=== PATIENT | female | born 1950 | race Caucasian/White ===

== ENCOUNTER 2018-02-09 04:20 | Emergency (ER) | payer MEDICARE, MEDICAID ==
[~2018-02-09] VITALS: Ht 160 cm; Wt 65.0 kg
[~2018-02-09 04:20] MED LIST: BACI500T TOP; DOCU1CAP39 PO; HYDRO25 PO; LORA0.5T PO; NORC10TA2 PO; PARO20 PO; QUET100 PO; QUET25 PO; RIVA10 PO; THIA100T PO; Z.0.WALKERFRONT; Z.0.WHEELELR
[2018-02-09 04:27] VITALS: BP 138/89; PULSE 94; RESP 18; TEMP 97.4; O2SAT 94
--- NOTE | 2018-02-09 04:39 | PD ---
HPI Chief Complaint: Syncope/Near-Syncope Time Seen by Provider: 04:39 Travel History International Travel<30 days: No Contact w/Intl Traveler<30days: No Traveled to known affect area: No History of Present Illness HPI 68-year-old female came to the emergency room with history of syncopal episode witnessed by her partner. Patient has been complaining of nausea all day as per her partner. At night before going to bed she gave her a dose of trazodone so that she will be able to sleep. However at around 4 AM she woke up and said she had to go to the bathroom. Her partner helped her to the toilet. She was still standing there when she noticed that the patient flopped her head back and her eyes rolled back and she started foaming at the mouth. She called 911 and try to lay her on the floor. Patient remained unresponsive until EMS arrived at which point she slowly started to wake up. Patient does not recall any of this. Currently she still continues to complain of nausea. She is an alcoholic and drinks about 8-10 beers a day. She drinks last night as well. Currently she is awake and answering questions appropriately. Vital signs are relatively stable. Patient has never had syncopal episode like this in the past. [facility] Past Medical History Narrative Medical List of her past medical, surgical, social and family history is reviewed from the nursing note Arthritis: No Bipolar Disorder: Yes Anxiety: Yes Depression: Yes Heart Rhythm Problems: No Cancer: Yes Cardiovascular Problems: Yes High Cholesterol: No Chemotherapy: No Chest Pain: No Congestive Heart Failure: No COPD: No Diabetes: No Diminished Hearing: Yes (BILAT) Endocrine: No Gastrointestinal Disorders: No GERD: No Genitourinary: No Headaches: No Hiatal Hernia: No Heparin Induced Thrombocytopen: No Hypertension: Yes Immune Disorder: No Implanted Vascular Access Dvce: No Musculoskeletal: No Neurologic: No Psychiatric: Yes Reproductive: No Respiratory: No Immunizations Current: Yes Migraines: No Radiation Therapy: No Schizophrenia: Yes Seizures: No Sickle Cell Disease: No Sleep Apnea: No Thyroid Disease: No Ulcer: No Menopausal: Yes : 2 Para: 0 : 2 Past Surgical History Abdominal Surgery: No AICD: No Arteriovenous Shunt: No Cardiac Surgery: No Ear Surgery: No Endocrine Surgery: No Eye Surgery: No Genitourinary Surgery: No Gynecologic Surgery: No Insulin Pump: No Joint Replacement: No Neurologic Surgery: No Oral Surgery: No Pacemaker: No Thoracic Surgery: No Other Surgery: No Social History Alcohol Use: Yes (SOC) Tobacco Use: Yes (1/2 PPD) Substance Use: Yes Allergies-Medications (Allergen,Severity, Reaction): Coded Allergies: No Known Allergies (Unverified Adverse Reaction, Unknown, 02/09/18) Comments No known drug allergies per Reported Meds & Prescriptions Reported Meds & Active Scripts Active Active Prescriptions or Reported Medications Unobtainable Narrative Medication List of her home medications reviewed from the nursing note. Review of Systems Except as stated in HPI: all other systems reviewed are Neg Gastrointestinal: Positive: Nausea Neurologic: Positive: Syncope Physical Exam Narrative GENERAL: Awake, alert, moderate distress, looks older than her age SKIN: Focused skin assessment warm/dry. HEAD: Atraumatic. Normocephalic. EYES: Pupils equal and round. No scleral icterus. No injection or drainage. ENT: No nasal bleeding or discharge. Mucous membranes pink and moist. NECK: Trachea midline. No JVD. CARDIOVASCULAR: Regular rate and rhythm. No murmur appreciated. RESPIRATORY: No accessory muscle use. Clear to auscultation. Breath sounds equal bilaterally. GASTROINTESTINAL: Abdomen soft, non-tender, nondistended. Hepatic and splenic margins not palpable. MUSCULOSKELETAL: No obvious deformities. No clubbing. No cyanosis. No edema. NEUROLOGICAL: Awake and alert. No obvious cranial nerve deficits. Motor grossly within normal limits. Normal speech. PSYCHIATRIC: Appropriate mood and affect; insight and judgment normal. Data Data Last Documented VS Vital Signs Date Time Temp Pulse Resp B/P (MAP) Pulse Ox O2 Delivery O2 Flow Rate FiO2 02/09/18 11:49 02/09/18 11:18 75 18 96 Room Air Orders Orders Electrocardiogram (02/09/18 05:00) Prothrombin Time / Inr (Pt) (02/09/18 05:00) Complete Blood Count With Diff (02/09/18 05:00) Comprehensive Metabolic Panel (02/09/18 05:00) Troponin I (02/09/18 05:00) Urinalysis - C+S If Indicated (02/09/18 05:00) Ct Brain W/O Iv Contrast(Rout) (02/09/18 05:00) Ecg Monitoring (02/09/18 05:00) Iv Access Insert/Monitor (02/09/18 05:00) Oximetry (02/09/18 05:00) Ondansetron Inj (Zofran Inj) (02/09/18 05:00) Sodium Chloride 0.9% Flush (Ns Flush) (02/09/18 05:00) Alcohol (Ethanol) (02/09/18 05:00) Sodium Chlorid 0.9% 500 Ml Inj (Ns 500 M (02/09/18 05:00) Mri Brain W&W/O Contrast (02/09/18 ) Gadodiamide Pf Inj (Omniscan Pf Inj) (02/09/18 08:15) Potassium Bicarb Eff (Effer-K Eff) (02/09/18 09:45) Ed Discharge Order (02/09/18 11:33) Labs Laboratory Tests Test 02/09/18 05:08 02/09/18 05:38 White Blood Count 8.7 TH/MM3 Red Blood Count 4.38 MIL/MM3 Hemoglobin 14.4 GM/DL Hematocrit 41.9 % Mean Corpuscular Volume 95.8 FL Mean Corpuscular Hemoglobin 32.9 PG Mean Corpuscular Hemoglobin Concent 34.3 % Red Cell Distribution Width 13.2 % Platelet Count 217 TH/MM3 Mean Platelet Volume 8.9 FL Neutrophils (%) (Auto) 45.4 % Lymphocytes (%) (Auto) 43.4 % Monocytes (%) (Auto) 7.7 % Eosinophils (%) (Auto) 2.8 % Basophils (%) (Auto) 0.7 % Neutrophils # (Auto) 4.0 TH/MM3 Lymphocytes # (Auto) 3.8 TH/MM3 Monocytes # (Auto) 0.7 TH/MM3 Eosinophils # (Auto) 0.2 TH/MM3 Basophils # (Auto) 0.1 TH/MM3 CBC Comment DIFF FINAL Differential Comment Prothrombin Time 10.5 SEC Prothromb Time International Ratio 1.0 RATIO Blood Urea Nitrogen 4 MG/DL Creatinine 0.61 MG/DL Random Glucose 82 MG/DL Total Protein 7.0 GM/DL Albumin 3.5 GM/DL Calcium Level 8.0 MG/DL Alkaline Phosphatase 131 U/L Aspartate Amino Transf (AST/SGOT) 123 U/L Alanine Aminotransferase (ALT/SGPT) 23 U/L Total Bilirubin 0.5 MG/DL Sodium Level 132 MEQ/L Potassium Level 3.1 MEQ/L Chloride Level 96 MEQ/L Carbon Dioxide Level 17.8 MEQ/L Anion Gap 18 MEQ/L Estimat Glomerular Filtration Rate 97 ML/MIN Troponin I LESS THAN 0.02 NG/ML Ethyl Alcohol Level 45 MG/DL Urine Color COLORLESS Urine Turbidity CLEAR Urine pH 5.5 Urine Specific [place] 1.003 Urine Protein NEG mg/dL Urine Glucose (UA) NEG mg/dL Urine Ketones NEG mg/dL Urine Occult Blood NEG Urine Nitrite NEG Urine Bilirubin NEG Urine Urobilinogen LESS THAN 2.0 MG/DL Urine Leukocyte Esterase TRACE Urine RBC LESS THAN 1 /hpf Urine WBC 1 /hpf Microscopic Urinalysis Comment CATH-CULT NOT IND MDM Medical Decision Making Medical Screen Exam Complete: Yes Emergency Medical Condition: Yes Medical Record Reviewed: Yes Interpretation(s) Twelve-lead EKG was reviewed by me. Normal sinus rhythm, normal axis, nonspecific ST-T wave changes. Heart rate of 90 bpm. Differential Diagnosis Cardiac arrhythmia, electrolyte abnormality, intracranial bleed, Narrative Course 6:04 AM blood test results are pending. CBC is back which is within normal limits. Chemistries pending. CT scan was done and has been reported by the radiologist as a hypodense lesion noticed recommending MRI. I have ordered an MRI. Waiting for this test to be done and resulted. Case most probably will be signed out to the oncoming ER physician. Procedures EKG Prior to Arrival: No Scripts Unable to Obtain Active Prescriptions or Reported Meds Kiana Lane MD Feb 09, 2018 04:39
[2018-02-09] MEDS ORDERED: ONDANSETRON HCL 4 MG/2 ML VIAL IVP ONE (05:00)
[2018-02-09] MEDS ORDERED: SODIUM CHLORID 0.9% 500 ML INJ 500 ML IV ONE (05:00)
[2018-02-09] MEDS ORDERED: SODIUM CHLORIDE 0.9% FLUSH 10 ML FLUSH IVF PRN (05:00)
[2018-02-09 05:14] VITALS: BP 114/89; PULSE 86; RESP 16; O2SAT 95
--- NOTE | 2018-02-09 05:48 | RADRPT ---
EXAM DATE/TIME: 02/09/2018 05:19 [facility] COMPARISON: No previous studies available for comparison. INDICATIONS : Nausea and headache. RADIATION DOSE: 56.35 CTDIvol (mGy) MEDICAL HISTORY : Cardiovascular disease. Hypertension. SURGICAL HISTORY : None. ENCOUNTER: Initial ACUITY: 1 day PAIN SCALE: 7/10 LOCATION: cranial TECHNIQUE: Multiple contiguous axial images were obtained of the head. Using automated exposure control and adj ustment of the mA and/or kV according to patient size, radiation dose was kept as low as reasonably a chievable to obtain optimal diagnostic quality images. DICOM format image data is available electro nically for review and comparison. FINDINGS: CEREBRUM: The ventricles are normal for age. There is a focal asymmetric area of hypo-density in the left demetra na radiata with ill-defined margins measuring 1.6 cm. There is good soto-white matter differentiatio n and remainder of the supratentorial brain. No evidence of acute blood products. No extra-axial fl uid or blood is POSTERIOR FOSSA: The cerebellum and brainstem are intact. The 4th ventricle is midline. The cerebellopontine angle i s unremarkable. EXTRACRANIAL: The visualized portion of the orbits is intact. SKULL: The calvaria is intact. No evidence of skull fracture. CONCLUSION: 1. Focal hypodensity in the left parietal white matter. Recommend MRI examination with contrast for further characterization. Martin Ferguson MD on February 09, 2018 at 5:43 Board Certified Radiologist. This report was verified electronically.
[2018-02-09 05:49] LABS: BASOPHIL # 0.1 TH/MM3 (0-0.2); BASOPHIL % 0.7 % (0.0-2.0); EOSINOPHIL # 0.2 TH/MM3 (0-0.4); EOSINOPHIL % 2.8 % (0.0-4.0); HEMATOCRIT 41.9 % (35.0-46.0); HEMOGLOBIN 14.4 GM/DL (11.6-15.3); LYMPH % 43.4 % (9.0-44.0); LYMPHOCYTE # 3.8 TH/MM3 (1.0-4.8); MEAN CELL VOLUME 95.8 FL (80.0-100.0); MEAN CORPUSCULAR HEMOGLOBIN 32.9 PG (27.0-34.0); MEAN CORPUSCULAR HGB CONC 34.3 % (32.0-36.0); MEAN PLATELET VOLUME 8.9 FL (7.0-11.0); MONO % 7.7 % (0.0-8.0); MONOCYTE # 0.7 TH/MM3 (0-0.9); NEUT % 45.4 % (16.0-70.0); PLATELET COUNT 217 TH/MM3 (150-450); RED BLOOD COUNT 4.38 MIL/MM3 (4.00-5.30); RED CELL DISTRIBUTION WIDTH 13.2 % (11.6-17.2); WHITE BLOOD COUNT 8.7 TH/MM3 (4.0-11.0)
[2018-02-09 05:51] LABS: PROTHROMBIN TIME - PATIENT 10.5 SEC (9.8-11.6)
[2018-02-09 06:01] LABS: BILIRUBIN, URINE NEG (NEG); BLOOD, URINE NEG (NEG); GLUCOSE,URINE NEG (NEG); KETONE, URINE NEG (NEG); NITRITE,URINE NEG (NEG); PH, URINE 5.5 (5.0-8.5); URINE COLOR COLORLESS (YELLW/STRAW); URINE LEUKOCYTE ESTERASE TRACE (NEG)
[2018-02-09 06:16] LABS: ALBUMIN 3.5 GM/DL (3.4-5.0); ALT (GPT) 23 U/L (10-53); AST (GOT) 123 U/L (15-37); BICARBONATE 17.8 MEQ/L (21.0-32.0); BLOOD UREA NITROGEN 4 MG/DL (7-18); CHLORIDE 96 MEQ/L (98-107); CREATININE 0.61 MG/DL (0.50-1.00); GLOMERULAR FILTRATION RATE 97 ML/MIN (>89); GLUCOSE,RANDOM 82 MG/DL (74-106); SODIUM (NA) 132 MEQ/L (136-145)
[2018-02-09 06:20] LABS: ALKALINE PHOSPHATASE 131 U/L (45-117); TOTAL BILIRUBIN ADULT 0.5 MG/DL (0.2-1.0); TROPONIN I LESS THAN 0.02 NG/ML (0.02-0.05)
[2018-02-09] MEDS ORDERED: GADODIAMIDE PF 287 MG/ML 5 ML VIAL (for RAD MRI) IV PUSH ONE (08:15)
--- NOTE | 2018-02-09 09:18 | RADRPT ---
EXAM DATE/TIME: 02/09/2018 08:10 [facility] COMPARISON: CT BRAIN W/O CONTRAST, February 09, 2018, 5:19. INDICATIONS : Abnormal CT scan. CONTRAST: 11 cc Omniscan (gadodiamide) IV MEDICAL HISTORY : Hypertension. SURGICAL HISTORY : Orif leg. ENCOUNTER: Initial ACUITY: 1 day PAIN SCORE: 4/10 LOCATION: head TECHNIQUE: Multiplanar, multisequence MRI of the brain was performed both prior to and following the administrat ion of paramagnetic contrast. FINDINGS: There is no restricted diffusion to suggest an acute infarct. Focal high signal intensity is seen in the periventricular white matter left vasoganglia. Small lacunar type infarction is seen on the rig ht There are no extra-axial fluid collections appreciated. Ventricular size is appropriate There is no parenchymal hemorrhage. Following intravenous administration of contrast there is no abnormal contrast enhancement. Posterior fossa is unremarkable. CONCLUSION: Abnormality high in the left basal ganglia shows no enhancement or restricted diffusi on. Considerations would include an old ischemic process although unusual location or a congenital p rocess. The Minimal periventricular white changes. Rachid Glover MD FACR on February 09, 2018 at 9:12 Board Certified Radiologist. This report was verified electronically.
[2018-02-09] MEDS ORDERED: POTASSIUM BICARBONATE 25 MEQ EFFERVESCENT TAB PO ONE (09:45)
[2018-02-09 11:18] VITALS: BP 129/76; PULSE 75; RESP 18; O2SAT 96
--- NOTE | 2018-02-09 11:33 | PD ---
Data Data Last Documented VS Vital Signs Date Time Temp Pulse Resp B/P (MAP) Pulse Ox O2 Delivery O2 Flow Rate FiO2 02/09/18 11:18 75 18 129/76 (93) 96 Room Air 02/09/18 04:27 97.4 Orders Orders Electrocardiogram (02/09/18 05:00) Prothrombin Time / Inr (Pt) (02/09/18 05:00) Complete Blood Count With Diff (02/09/18 05:00) Comprehensive Metabolic Panel (02/09/18 05:00) Troponin I (02/09/18 05:00) Urinalysis - C+S If Indicated (02/09/18 05:00) Ct Brain W/O Iv Contrast(Rout) (02/09/18 05:00) Ecg Monitoring (02/09/18 05:00) Iv Access Insert/Monitor (02/09/18 05:00) Oximetry (02/09/18 05:00) Ondansetron Inj (Zofran Inj) (02/09/18 05:00) Sodium Chloride 0.9% Flush (Ns Flush) (02/09/18 05:00) Alcohol (Ethanol) (02/09/18 05:00) Sodium Chlorid 0.9% 500 Ml Inj (Ns 500 M (02/09/18 05:00) Mri Brain W&W/O Contrast (02/09/18 ) Gadodiamide Pf Inj (Omniscan Pf Inj) (02/09/18 08:15) Potassium Bicarb Eff (Effer-K Eff) (02/09/18 09:45) Labs Laboratory Tests Test 02/09/18 05:08 02/09/18 05:38 White Blood Count 8.7 TH/MM3 Red Blood Count 4.38 MIL/MM3 Hemoglobin 14.4 GM/DL Hematocrit 41.9 % Mean Corpuscular Volume 95.8 FL Mean Corpuscular Hemoglobin 32.9 PG Mean Corpuscular Hemoglobin Concent 34.3 % Red Cell Distribution Width 13.2 % Platelet Count 217 TH/MM3 Mean Platelet Volume 8.9 FL Neutrophils (%) (Auto) 45.4 % Lymphocytes (%) (Auto) 43.4 % Monocytes (%) (Auto) 7.7 % Eosinophils (%) (Auto) 2.8 % Basophils (%) (Auto) 0.7 % Neutrophils # (Auto) 4.0 TH/MM3 Lymphocytes # (Auto) 3.8 TH/MM3 Monocytes # (Auto) 0.7 TH/MM3 Eosinophils # (Auto) 0.2 TH/MM3 Basophils # (Auto) 0.1 TH/MM3 CBC Comment DIFF FINAL Differential Comment Prothrombin Time 10.5 SEC Prothromb Time International Ratio 1.0 RATIO Blood Urea Nitrogen 4 MG/DL Creatinine 0.61 MG/DL Random Glucose 82 MG/DL Total Protein 7.0 GM/DL Albumin 3.5 GM/DL Calcium Level 8.0 MG/DL Alkaline Phosphatase 131 U/L Aspartate Amino Transf (AST/SGOT) 123 U/L Alanine Aminotransferase (ALT/SGPT) 23 U/L Total Bilirubin 0.5 MG/DL Sodium Level 132 MEQ/L Potassium Level 3.1 MEQ/L Chloride Level 96 MEQ/L Carbon Dioxide Level 17.8 MEQ/L Anion Gap 18 MEQ/L Estimat Glomerular Filtration Rate 97 ML/MIN Troponin I LESS THAN 0.02 NG/ML Ethyl Alcohol Level 45 MG/DL Urine Color COLORLESS Urine Turbidity CLEAR Urine pH 5.5 Urine Specific [place] 1.003 Urine Protein NEG mg/dL Urine Glucose (UA) NEG mg/dL Urine Ketones NEG mg/dL Urine Occult Blood NEG Urine Nitrite NEG Urine Bilirubin NEG Urine Urobilinogen LESS THAN 2.0 MG/DL Urine Leukocyte Esterase TRACE Urine RBC LESS THAN 1 /hpf Urine WBC 1 /hpf Microscopic Urinalysis Comment CATH-CULT NOT IND MDM Supervised Visit with [facility]: No Narrative Course This case is checked out to me by Dr. Lane at 7 AM I reevaluated the patient and discussed her workup with her. She had abnormal brain CT finding and then underwent MRI She has a fairly nonspecific lesion on MRI, could be a old stroke type change but unclear Patient has primary care follow-up tomorrow and she will discuss it with her physician She is doing well at this time She has had IV fluid I gave her dose of potassium replacement The patient was advised to follow up with their physician and return if they worsen. Diagnosis Primary Impression: Pre-syncope Additional Impressions: Brain lesion Hypokalemia Hyponatremia Additional Instruction: The patient was advised to follow up with their physician and return if they worsen. Discuss abnormal MRI reading with your physician Med/Other Pt SpecificInfo: Other Scripts Unable to Obtain Active Prescriptions or Reported Meds Disposition: DISCHARGE HOME Condition: Stable Kocisko,Micky J. MD Feb 09, 2018 11:33
--- NOTE | 2018-02-09 11:46 | EKG ---
Date Performed: 02/09/2018 Time Performed: 04:39:55 PTAGE: 68 years EKG: Sinus rhythm NORMAL ECG Since the PREVIOUS TRACING , no significant change noted PREVIOUS TRACIN05/13/2016 22.28 DOCTOR: Blaire Harden Interpretating Date/Time 02/09/2018 11:44:22
== END 2018-02-09 12:04 | disposition home or self-care (01) ==
LOC: NEPC 04:20
DX: R55 Syncope and collapse (principal); E87.6 Hypokalemia; E87.1 Hypo-osmolality and hyponatremia; G93.9 Disorder of brain, unspecified; R11.0 Nausea; F31.9 Bipolar disorder, unspecified; F41.9 Anxiety disorder, unspecified; I10 Essential (primary) hypertension; F17.210 Nicotine dependence, cigarettes, uncomplicated
CPT/HCPCS: 70450; 70553; 80053; 80307; 81001; 84484; 85025; 85610; 93005; 96374; 99284; A9579; J2405; J7040